=== PATIENT | female | born 1980 | race Caucasian/White ===

== ENCOUNTER → 2019-09-04 08:11 | Outpatient (CLI) | payer OTHER, MEDICAID, SELFPAY ==
--- NOTE | 2019-09-04 08:12 | DI.MRI.S_ITS ---
PROCEDURE: MR CERVICAL SPINE WO/W CON INDICATIONS: Left upper extremity pain and weakness, cervical radiculopa TECHNIQUE: Noncontrast sagittal T1 spin echo and T2 fast spin echo, sagittal STIR, sagittal PD fast spin echo, foraminal oblique sagittal T2 fast spin echo, axial gradient echo or T2 fast spin echo through the cervical spine. After the administration of contrast, sagittal and axial T1 spin echo with fat saturation through the cervical spine. COMPARISON: [facility], , MRI C-SPINE W/O CONTRAST, 12/13/2018, 8:59. FINDINGS: Image quality: Excellent. Alignment and curvature: Straightening of the normal lordotic curvature. Cervical spondylosis most pronounced at C5-C6 and C6-C7. Marrow: Marrow demonstrates normal overall signal. Spinal cord: Visualized spinal cord is normal in size, without white matter lesions. No suspicious intramedullary enhancement. No cerebellar tonsillar herniation. Paraspinous soft tissues: No paravertebral masses or suspicious enhancement. C2-C3: Normal appearance. C3-C4: Mild bilateral foraminal narrowing with slight nerve root compression, which appears minimally progressed. No canal stenosis. C4-C5: Minimal canal narrowing. Moderate bilateral foraminal stenoses with neurocompression on both sides although left slightly greater than right. No definite interval change. C5-C6: Mild canal narrowing, left-sided. This appears grossly unchanged. Moderate bilateral foraminal stenoses with slight or progression bilaterally this appears progressed on the left and grossly stable on the right. C6-C7: Mild left-sided canal narrowing, which is slightly progressed since the prior study. No right foraminal stenosis. Slight left foraminal narrowing. No interval change. C7-T1: Normal appearance. IMPRESSION: Diffuse cervical spondylosis and facet disease, with slight interval progression since 12/13/18 as detailed by spinal level above. Straightening of the normal lordotic curvature. No abnormal enhancement. Dictated by: Piyush Queen M.D. on 09/04/2019 at 10:57 Approved by: Piyush Queen M.D. on 09/04/2019 at 11:09
== END ==
PROVIDERS: PCP Nurse Practitioner Family; Referring Provider Physical Medicine & Rehabilitation; Visit Provider Physical Medicine & Rehabilitation
DX: M47.22 Other spondylosis with radiculopathy, cervical region (principal); M96.1 Postlaminectomy syndrome, not elsewhere classified; R29.898 Other symptoms and signs involving the musculoskeletal system; M79.602 Pain in left arm
CPT/HCPCS: 72156; A9579

== ENCOUNTER 2021-05-11 08:29 | Outpatient (CLI) | payer OTHER, MEDICAID, SELFPAY ==
[2021-05-11] VITALS (11 sets, daily range): BP systolic 105–135; BP diastolic 64–85; PULSE 74–81; RESP 11–75; TEMP 36.4; O2SAT 16–100
--- NOTE | 2021-05-11 08:30 | DI.RAD.S_ITS ---
PROCEDURE: PAIN C/T INTERLAMINAR INJECT INDICATIONS: SPINAL STENOSIS COMPARISON: [facility], RG, XR C-SPINE 4-6V, 04/19/2021, 17:02. FINDINGS: Fluoroscopic spot filming was performed to verify placement of a spinal needle at the C6-C7 level, as labeled on the films. Appropriate location of the needle tip was confirmed by injection of iodinated contrast. IMPRESSION: No significant intraprocedural abnormality. Dictated by: Baldo Lau M.D. on 05/11/2021 at 9:50 Approved by: Baldo Lau M.D. on 05/11/2021 at 9:50
[2021-05-11] MEDS: fentaNYL 100 MCG/2 ML INJ 50 MCG IV (10:05)
[2021-05-11] MEDS: MIDAZOLAM 5 MG/5 ML VIAL IV (10:13)
[2021-05-11] MEDS: IOPAMIDOL 15 ML VIAL 3 ML INJ (10:14)
[2021-05-11] MEDS: BUPIVACAINE 0.25% (PF) VIAL 2 ML INJ (10:14)
[2021-05-11] MEDS: DEXAMETHASONE 10 MG/ML VIAL 30 MG INJ (10:15)
--- NOTE | 2021-05-11 10:29 | P.PCN_ITS ---
Date/Time/Diagnoses Date of procedure: 05/11/21 Time of procedure: 10:29 Pre-procedure diagnosis: 1. CERVICAL STENOSIS, 2. CERVICAL HNP WITH UPPER EXTREMITY RADICULAR FEATURES Post-procedure diagnosis: same Procedure Notes Procedure: 1. FLUORSCOPICALLY GUIDED CONTRAST CONTROLLED INTERLAMINAR EPIDURAL STEROID INJECTION - C6/7 TL PRIYA Indications: Vilma is referred by PETE Pisano for treatment of Cervical HNP with Upper Extremity Paresthesias. Physician: Garrett Morgan Total Fluoroscopy time (seconds): 27 Total sedation minutes: 18 Complications: none Procedure in detail & Post-procedure care: FINDINGS Cervical Stenosis due to disc deterioration and nerve root irritation and nerve root irritation DESCRIPTION OF PROCEDURE Fluoroscopically guided, contrast-controlled C6/7 translaminar epidural steroid injection with conscious sedation. Following review of allergy and review of potential side effects and complications, including, but not necessarily limited to, infection, allergic reaction, local tissue breakdown, temporary as well as permanent nerve injury, stroke, paralysis, and possible , the patient indicated that patient understood and agreed to proceed. An informed consent document was signed by the patient, witnessed by a nurse, and placed in the patient's chart. Additionally, other treatment options including modalities, medications, and physical therapy were reviewed with the patient. After review of previous anaesthesic history and IV conscious sedation the patient was deemed safe to proceed with today?s procedure with IV conscious sedation as ASA class II designation. Safety time-out was performed to confirm patient ID, procedure to be performed and site of procedure. IV sedation was accomplished with a combination of 4mg of Versed and 50mcg of Fentanyl administered by the RN after DO order, titrated to patient comfort during the course of the procedure while the patient remained responsive to all verbal commands. In the prone position, following sterile prep and drape of the cervical region, the C6/7 translaminar space was identified fluoroscopically. The skin was anesthetized via a 25-gauge 1.5-inch needle with 1% lidocaine solution. At this point, a 25-gauge, 2.5-inch short bevel spinal needle was atraumatically introduced and advanced under fluoroscopic guidance into epidural space at the C6/7 translaminar space. Depth was confirmed on lateral view. Radiological data, including multiple fluoroscopic views of the cervical spine, reveal a spinal needle at the C6/7 translaminar space. Lateral views then show placement of the needle in the epidural space. Subsequent views show contrast material flowing superiorly and inferiorly in the epidural space. DSA fluoroscopy with live contrast injection, once again, confirmed no vascular or intrathecal uptake. At this point, using loss of resistance technique with saline and air, the epidural space was entered. Following negative aspiration, injection of ap proximately 1.5 cc of Isovue-200 with live fluoroscopy in the AP view confirmed epidural flow in the epidural space without vascular or intrathecal uptake observed. Subsequently, a test dose of 1 cc of 1% lidocaine solution was injected and patient was observed for two minutes without signs or symptoms of complications, including abdominal pain, shortness of breath, bilateral upper or lower extremity weakness, nausea and vomiting, prior to steroid injection. At this point, 3cc or 30mg of dexamethasone was then injected without incident. The patient tolerated the procedure well without signs or symptoms of complications prior to being transferred to the recovery area for further monitoring, The patient was then transferred to the recovery area where they were observed for an appropriate period of time after the injection. The patient reported a VAS score of 6 prior to the procedure and a post-procedure VAS of 0. POST OP INSTRUCTIONS The patient was provided a Pain Log to continue to record their response to the target-specific procedure prior to follow-up visit with the referring provider. Additionally, specific post-injection care instructions and a contact number to our office were provided if concerns arise regarding possible complications associated with the procedure are suspected.
== END 2021-05-11 10:45 | disposition home or self-care (01) ==
LOC: RAD 08:30
PROVIDERS: PCP Nurse Practitioner Family; Referring Provider Physical Medicine & Rehabilitation; Visit Provider Physical Medicine & Rehabilitation
DX: M48.02 Spinal stenosis, cervical region (principal); M50.123 Cervical disc disorder at C6-C7 level with radiculopathy
CPT/HCPCS: 62321; 99152; J1100; J2250; J3010

== ENCOUNTER 2021-12-21 08:50 | Emergency (ER) | payer OTHER, MEDICAID, SELFPAY ==
[2021-12-21 09:00] VITALS: BP 120/64; PULSE 77; RESP 14; TEMP 37.1; O2SAT 99; BMI 29.7
--- NOTE | 2021-12-21 09:07 | ED.ABDPAIN ---
HPI - Abdominal Pain General Chief Complaint: Abdominal Pain Stated Complaint: Abd pain, nausea Time Seen by Provider: 12/21/21 09:00 Source: patient Mode of arrival: Ambulatory History of Present Illness HPI narrative: Patient is a 41-year-old female with no past medical history presenting today with epigastric and right upper quadrant pain. She says this started last night it has progressively gotten worse. She feels nauseous she has not had any vomiting. No lower abdominal pain. She denies any radiation into her chest but sometimes actually has left shoulder discomfort. She has no shortness of breath. No fever or chills. She was checking in his to get cervical injection with Dr. Morgan of but due to her severe abdominal pain and nausea was sent to the ED for further evaluation. Related Data Home Medications Medication Instructions Recorded Confirmed ibuprofen 800 mg tablet 800 mg PO TID 08/17/19 04/24/21 propranolol 80 mg capsule,24 80 mg PO DAILY 08/17/19 04/24/21 hr,extended release albuterol sulfate 90 mcg/actuation 2 inh inhalation Q6H PRN 04/24/21 04/24/21 aerosol inhaler bupropion HCl 150 mg 24 hr tablet, 150 mg PO DAILY 04/24/21 04/24/21 extended release dextroamphetamine-amphetamine 20 20 mg PO TID 04/24/21 04/24/21 mg tablet oxycodone 5 mg tablet 5 mg PO Q6H PRN 04/24/21 04/24/21 zolpidem 10 mg tablet 10 mg PO BEDTIME PRN 04/24/21 04/24/21 bupropion HCl 300 mg 24 hr tablet, 300 mg PO DAILY 10/12/21 extended release sumatriptan succinate 50 mg tablet 50 mg PO ONCE 10/12/21 trazodone 150 mg tablet 150 mg PO BEDTIME 10/12/21 Previous Rx's Medication Instructions Recorded diazepam 10 mg tablet (Valium) 10 mg PO .COMPLEX PRN 1-2 prior to 12/18/21 MRI and for possible steroid flare #10 tabs ondansetron 4 mg disintegrating 4 mg PO Q8H PRN nausea and 12/21/21 tablet vomiting #10 tabs Allergies Allergy/AdvReac Type Severity Reaction Status Date / Time morphine Allergy Severe Anaphylaxis Verified 12/21/21 09:02 Sulfa (Sulfonamide Allergy Severe Rash Verified 12/21/21 09:02 Antibiotics) Review of Systems Review of Systems Narrative: GENERAL: Denies chills, fatigue, malaise, fever, sweats, travel HEENT: Denies sinus pain, ear pain, sore throat, difficulty swallowing, neck pain RESPIRATORY: Denies dyspnea, cough, wheezing, hemoptysis, sputum. CARDIOVASCULAR: Denies chest pain, palpitations, orthopnea, edema GASTROINTESTINAL: See HPI : Denies dysuria, frequency, incontinence, hematuria, urinary retention, flank pain. MUSCULOSKELETAL: Denies weakness, joint pain, or bony pain SKIN: No rash, no erythema, no pruritus NEUROLOGIC: Denies weakness, dizziness, headache, numbness, change in speech, confusion PSYCHIATRIC: No concerning psychosocial issues. 12 point review of systems is negative except for those stated above and HPI Patient History Medical History Cervical post-laminectomy syndrome Cervical radiculopathy at C5 Cervical radiculopathy at C7 Left arm weakness Surgical History H/O: hysterectomy History of tonsillectomy Status post cervical spinal arthrodesis Family History Unknown No pertinent family history Social History Smoking Status: Never smoker Smoking Status: Never smoker alcohol intake frequency: holidays/special occasions only Substance Use Type: does not use Exam Initial Vital Signs Initial Vital Signs: Vital Signs Temperature 98.8 F 12/21/21 09:00 Pulse Rate 77 12/21/21 09:00 Respiratory Rate 14 12/21/21 09:00 Blood Pressure 120/64 12/21/21 09:00 Pulse Oximetry 99 12/21/21 09:00 Oxygen Delivery Method 12/21/21 09:00 GENERAL: Alert 41-year-old female appears uncomfortable and in no acute distress. HEENT: Head atraumatic,EOMI, pupils reactive, face symmetric, moist mucous membranes CARDIOVASCULAR: Regular rate and rhythm without murmurs, rubs or gallops. RESPIRATORY: Breath sounds equal bilaterally, no wheezes rales or rhonchi. ABDOMEN: Soft, nontender. Normoactive bowel sounds all 4 quadrants. No guarding or rebound. EXTREMITIES: Normal range of motion, no clubbing or edema. Neurovascularly intact NEUROLOGICAL: Alert and oriented x4. SKIN: Warm, dry, no laceration, no petechiae, no rashes or lesions. Course Orders Ordered: Discontinued Medications Hydromorphone HCl (Hydromorphone 1 Mg Inj) 1 mg IV NOW ONE Stop: 12/21/21 10:02 Last Admin: 12/21/21 10:05 Dose: 1 mg Documented By: JACK Hydromorphone HCl (Hydromorphone 1 Mg Inj) 1 mg IV NOW ONE Stop: 12/21/21 11:30 Last Admin: 12/21/21 11:32 Dose: 1 mg Documented By: JACK(2) Ketorolac Tromethamine (Ketorolac 30 Mg/Ml Vial) 15 mg IV NOW ONE Stop: 12/21/21 09:21 Last Admin: 12/21/21 09:38 Dose: 15 mg Documented By: JACK(2) Ondansetron HCl (Ondansetron 4 Mg/2 Ml Inj) 4 mg IV NOW ONE Stop: 12/21/21 09:21 Last Admin: 12/21/21 09:38 Dose: 4 mg Documented By: JACK(2) Vital Signs Vital signs: Vital Signs - 8 hr 12/21/21 11:00 12/21/21 11:00 12/21/21 11:30 Pulse Rate 58 L Blood Pressure 107/59 L 102/63 Pulse Oximetry 96 12/21/21 11:30 Pulse Rate 64 Blood Pressure Pulse Oximetry 99 MDM - Abdominal Pain Lab Data Result diagrams: 12/21/21 09:15 12/21/21 09:15 Labs: Lab Results 12/21/21 12/21/21 Range/Units 09:15 09:15 WBC 5.8 (4.5-11.0) X10^3/uL RBC 4.26 (4.0-5.2) X10^6/uL Hgb 13.2 (12.0-16.0) g/dL Hct 38.0 (36-46) % MCV 89.3 (80-100) fL MCH 31.0 (26-34) PG MCHC 34.7 (30-36) % RDW 12.6 (11.6-14.8) % Plt Count 275 (150-400) X10^3/uL Neut % (Auto) 47.6 L (50-75) % Lymph % (Auto) 38.3 (25-40) % Petroleum % (Auto) 10.3 (3-14) % Eos % (Auto) 2.8 (2-4) % Baso % (Auto) 1.0 (0-2) % Neut # (Auto) 2800 (7908-4107) /uL Lymph # (Auto) 2200 (9021-7243) /uL Petroleum # (Auto) 600 (0-900) /uL Eos # (Auto) 200 (0-450) /uL Baso # (Auto) 100 (0-100) /uL Sodium 139 (137-145) mmol/L Potassium 4.2 (3.4-5.1) mmol/L Chloride 107 (98-107) mmol/L Carbon Dioxide 21 L (22-32) mmol/L BUN 12 (7-17) mg/dL Creatinine 0.75 (0.52-1.04) mg/dL Estimated GFR > 60 (>60) mL/min BUN/Creatinine Ratio 16.0 (6-22) Glucose 110 H (70-100) mg/dL Calcium 8.5 (8.4-10.2) mg/dL Total Bilirubin 0.6 (0.2-1.3) mg/dL AST 275 H (14-36) IU/L ALT 247 H (<35) IU/L Alkaline Phosphatase 71 (38-126) U/L Total Protein 7.1 (6.3-8.2) g/dL Albumin 4.2 (3.5-5.0) g/dL Globulin 2.9 (1.7-4.1) g/dL Albumin/Globulin Ratio 1.4 (1.0-2.8) Lipase 59 (23-300) U/L Point of care testing: Urine Dip Bedside Urine Glucose Negative Bedside Urine Bilirubin - Negative Bedside Urine Ketone - Negative Urine Specific [place] 1.020 Bedside Urine Occult Blood - Negative Bedside Urine pH 6.0 Bedside Urine Protein - Negative Bedside Urine Urobilinogen 0.2 Bedside Urine Nitrite - Negative Bedside Urine Leukocytes - Negative Esterase Imaging Data US - abdomen: Radiologist's Impression: YESENIA Ochoa [id number] Ultrasound Report Signed Patient: Vilma Fernandez MR#: [id number] : 1980 Acct:[id number] Age/Sex: 41 / F Date of Service: 12/21/21 Loc: ED Accession Number: [id number] ?? Procedure: US abdomen limited Ordering Provider: Sue Sinclair D.O. PROCEDURE:? US ABDOMEN LIMITED ? INDICATIONS:? pain ruq and epigastric ? TECHNIQUE:? Real-time scanning was performed of the abdominal and retroperitoneal organs, with image documentation.? ? COMPARISON:? None. ? FINDINGS:? ? Liver:? The liver demonstrates diffusely increased echotexture without focal abnormalities consistent with chronic hepatocellular disease/hepatic steatosis. ? Gallbladder:? Gallbladder is normal in sonographic appearance without gallstones, gallbladder wall thickening, pericholecystic fluid, or abnormal sonographic Peña's.? ? Biliary ducts:? Intrahepatic bile ducts are non-dilated.? Extrahepatic bile duct caliber measures 3 mm.? Normal is 6-7 mm or less in diameter, or 10 mm or less post-cholecystectomy.? ? Pancreas:? Visualized portions of the pancreas are sonographically normal.? ? Miscellaneous:? No free abdominal fluid.? ? ? IMPRESSION:? No acute sonographic abnormalities in the right upper quadrant.? No evidence for cholelithiasis or acute cholecystitis. ? The liver demonstrates diffusely increased echotexture without focal abnormalities consistent with chronic hepatocellular disease/hepatic steatosis. Consider correlation with LFTs. ? ? ? Dictated by: Kwasi Lion M.D. on 12/21/2021 at 10:37 ? ? MDM Narrative Medical decision making narrative: Patient is still in quite a bit of pain Toradol did not seem to help. She takes oxycodone at home she is given Dilaudid. Still in pain. Blood work is reassuring liver enzymes are elevated but normal bilirubin. Ultrasound shows hepatic steatosis without any cholelithiasis or acute cholecystitis. At this time no identifiable cause of pain. Abdomen is reexamined her lower abdomen remains non tender she is ammonia still operator in her epigastric and right upper quadrant area. At this time recommend pain keep management and anti nausea medication. Re-evaluation if needed. This time she does not need CT blood work is reassuring. She is really only tender in her right upper quadrant Discharge Plan Departure Patient Disposition: Home Clinical Impression: Hepatic steatosis, Elevated liver enzymes Instructions: Acute Abdominal Pain Activity Restrictions/Additional Instructions: *You have been diagnosed with abdominal pain elevated liver enzymes *What to do: Sorry we were unable to find the cause of your abdominal pain today. Please continue to take pain medications. I hope it better be sure to stay hydrated *Continue to take medications as directed Zofran 4 mg every 8 hours if needed for nausea vomiting--> sent to [facility] [address] *Follow up with your primary care provider in 2-3 days or call [phone] *Return to ER if you should have increasing pain persistent vomiting, fever or any new, worsening or concerning symptoms Prescriptions: New ondansetron 4 mg tablet,disintegrating 4 mg PO Q8H PRN (Reason: nausea and vomiting) Qty: 10 0RF No Action diazepam [Valium] 10 mg tablet 10 mg PO .COMPLEX MDD 3 tabs PRN (Reason: 1-2 prior to MRI and for possible steroid flare) Qty: 10 0RF Rx Instructions: 10 mg PO PRN; propranolol 80 mg capsule,extended release 24 hr 80 mg PO DAILY ibuprofen 800 mg tablet 800 mg PO TID Hold Instructions: Home Medication placed on hold at Doctor's office dextroamphetamine-amphetamine 20 mg tablet 20 mg PO TID oxycodone 5 mg tablet 5 mg PO Q6H PRN albuterol sulfate 90 mcg/actuation HFA aerosol inhaler 2 inh inhalation Q6H PRN bupropion HCl 150 mg tablet extended release 24 hr 150 mg PO DAILY zolpidem 10 mg tablet 10 mg PO BEDTIME PRN trazodone 150 mg tablet 150 mg PO BEDTIME sumatriptan succinate 50 mg tablet 50 mg PO ONCE Label Comments: TAKE 1 TABLET BY MOUTH AT ONSET OF MIGRAINE HEADACHE, MAY REPEAT IN 30 MIN NEEDED. MAX 4 TABS/ 24 HRS bupropion HCl 300 mg tablet extended release 24 hr 300 mg PO DAILY Label Comments: Take 1 Tablet By Oral Route 1 time per day for anxiety and depression Referrals: Cliff Henry MD [Primary Care Provider] - Visit Report Forms: Patient Portal/API
--- NOTE | 2021-12-21 09:20 | DI.US.S_ITS ---
PROCEDURE: US ABDOMEN LIMITED INDICATIONS: pain ruq and epigastric TECHNIQUE: Real-time scanning was performed of the abdominal and retroperitoneal organs, with image documentation. COMPARISON: None. FINDINGS: Liver: The liver demonstrates diffusely increased echotexture without focal abnormalities consistent with chronic hepatocellular disease/hepatic steatosis. Gallbladder: Gallbladder is normal in sonographic appearance without gallstones, gallbladder wall thickening, pericholecystic fluid, or abnormal sonographic Peña's. Biliary ducts: Intrahepatic bile ducts are non-dilated. Extrahepatic bile duct caliber measures 3 mm. Normal is 6-7 mm or less in diameter, or 10 mm or less post-cholecystectomy. Pancreas: Visualized portions of the pancreas are sonographically normal. Miscellaneous: No free abdominal fluid. IMPRESSION: No acute sonographic abnormalities in the right upper quadrant. No evidence for cholelithiasis or acute cholecystitis. The liver demonstrates diffusely increased echotexture without focal abnormalities consistent with chronic hepatocellular disease/hepatic steatosis. Consider correlation with LFTs. Dictated by: Kwasi Lion M.D. on 12/21/2021 at 10:37 Approved by: Kwasi Lion M.D. on 12/21/2021 at 10:40
[2021-12-21] MEDS: KETOROLAC 30 MG/ML VIAL 15 MG IV (09:38)
[2021-12-21] MEDS: ONDANSETRON 4 MG/2 ML INJ IV (09:38)
[2021-12-21 09:43] LABS: Add Manual Diff / Slide Review NO; Basophils Absolute Auto 100 /uL (0-100); Eosinophils Absolute Auto 200 /uL (0-450); Eosinophils Percent Auto 2.8 % (2-4); Hemoglobin 13.2 g/dL (12.0-16.0); Lymphocytes Absolute Auto 2200 /uL (1100-4500); Lymphocytes Percent Auto 38.3 % (25-40); Mean Corpuscular HGB Conc 34.7 % (30-36); Mean Corpuscular Volume 89.3 fL (80-100); Monocytes Absolute Auto 600 /uL (0-900); Monocytes Percent Auto 10.3 % (3-14); Neutrophils Absolute Auto 2800 /uL (1500-7000); Neutrophils Percent Auto 47.6 % (50-75); Platelet Count 275 X10^3/uL (150-400); Red Blood Cell Count 4.26 X10^6/uL (4.0-5.2); Red Cell Distribution Width 12.6 % (11.6-14.8); White Blood Cell Count 5.8 X10^3/uL (4.5-11.0)
[2021-12-21 09:54] LABS: Alanine Aminotransferase 247 IU/L (<35); Albumin 4.2 g/dL (3.5-5.0); Albumin Globulin Ratio 1.4 (1.0-2.8); Alkaline Phosphatase 71 U/L (38-126); Aspartate Aminotransferase 275 IU/L (14-36); Bilirubin Total 0.6 mg/dL (0.2-1.3); Blood Urea Nitrogen 12 mg/dL (7-17); Calcium 8.5 mg/dL (8.4-10.2); Carbon Dioxide 21 mmol/L (22-32); Chloride 107 mmol/L (98-107); Estimated Glomerular Filt Rate > 60 mL/min (>60); Globulin 2.9 g/dL (1.7-4.1); Glucose 110 mg/dL (70-100); Lipase 59 U/L (23-300); Potassium 4.2 mmol/L (3.4-5.1); Sodium 139 mmol/L (137-145); Total Protein 7.1 g/dL (6.3-8.2)
[2021-12-21 09:57] LABS: HEMOLYSIS 53 (0-50)
[2021-12-21] MEDS: HYDROMORPHONE 1 MG INJ IV ×2 (10:05→11:32)
[2021-12-21 10:06] VITALS: PULSE 67; RESP 18; O2SAT 98
[2021-12-21 10:07] VITALS: BP 118/78; PULSE 71; O2SAT 98
[2021-12-21 10:30] VITALS: BP 104/67; PULSE 75; O2SAT 95
[2021-12-21 11:00] VITALS: BP 107/59; PULSE 58; O2SAT 96
[2021-12-21 11:30] VITALS: BP 102/63; PULSE 64; O2SAT 99
== END 2021-12-21 11:43 | disposition home or self-care (01) ==
PROVIDERS: Emergency Provider Emergency Medicine; PCP Internal Medicine
DX: R74.8 Abnormal levels of other serum enzymes (principal); K76.0 Fatty (change of) liver, not elsewhere classified
CPT/HCPCS: 36415; 76705; 80053; 81003; 83690; 85025; 96374; 96375; 96376; 99284; J1170; J1885; J2405

== ENCOUNTER 2022-01-04 09:09 | Outpatient (CLI) | payer OTHER, MEDICAID, SELFPAY ==
[2022-01-04] VITALS (8 sets, daily range): BP systolic 117–145; BP diastolic 67–86; PULSE 75–84; RESP 10–26; TEMP 36.1; O2SAT 98–100
--- NOTE | 2022-01-04 09:11 | DI.RAD.S_ITS ---
PROCEDURE: PAIN C/T INTERLAMINAR INJECT INDICATIONS: SPINAL STENOSIS COMPARISON: [facility], , PAIN C/T INTERLAMINAR INJECT, 05/11/2021, 11:14. FINDINGS: Fluoroscopic spot filming was performed to verify placement of a spinal needle at the C6-C7 level, as labeled on the films. Appropriate location of the needle tip was confirmed by injection of iodinated contrast. IMPRESSION: No significant intraprocedural abnormality. Dictated by: Baldo Lau M.D. on 01/04/2022 at 12:09 Approved by: Baldo Lau M.D. on 01/04/2022 at 12:09
[2022-01-04] MEDS: MIDAZOLAM 2 MG/2 ML VIAL 4 MG IV (10:36)
[2022-01-04] MEDS: DEXAMETHASONE 10 MG/ML VIAL 30 MG INJ (10:38)
[2022-01-04] MEDS: BUPIVACAINE 0.25% (PF) VIAL 2 ML INJ (10:38)
[2022-01-04] MEDS: IOPAMIDOL 15 ML VIAL 3 ML INJ (10:38)
--- NOTE | 2022-01-04 10:55 | P.PCN_ITS ---
Date/Time/Diagnoses Date of procedure: 01/04/22 Time of procedure: 10:55 Pre-procedure diagnosis: 1. CERVICAL STENOSIS, 2. CERVICAL HNP WITH UPPER EXTREMITY RADICULAR FEATURES Post-procedure diagnosis: same Procedure Notes Procedure: 1. FLUORSCOPICALLY GUIDED CONTRAST CONTROLLED INTERLAMINAR EPIDURAL STEROID INJECTION - C6/7 TL PRIYA Indications: Vilma is referred by Dr. Henry for treatment of Cervical HNP with Upper Extremity Paresthesias. Physician: Garrett Morgan Total Fluoroscopy time (seconds): 27 Total sedation minutes: 14 Complications: none Procedure in detail & Post-procedure care: FINDINGS Cervical Stenosis due to disc deterioration and nerve root irritation and nerve root irritation DESCRIPTION OF PROCEDURE Fluoroscopically guided, contrast-controlled C6/7 translaminar epidural steroid injection with conscious sedation. Following review of allergy and review of potential side effects and complications, including, but not necessarily limited to, infection, allergic reaction, local tissue breakdown, temporary as well as permanent nerve injury, stroke, paralysis, and possible , the patient indicated that patient understood and agreed to proceed. An informed consent document was signed by the patient, witnessed by a nurse, and placed in the patient's chart. Additionally, other treatment options including modalities, medications, and physical therapy were reviewed with the patient. After review of previous anaesthesic history and IV conscious sedation the patient was deemed safe to proceed with today?s procedure with IV conscious sedation as ASA class II designation. Safety time-out was performed to confirm patient ID, procedure to be performed and site of procedure. IV sedation was accomplished with a combination of 4mg of Versed administered by the RN after DO order, titrated to patient comfort during the course of the procedure while the patient remained responsive to all verbal commands. In the prone position, following sterile prep and drape of the cervical region, the C6/7 translaminar space was identified fluoroscopically. The skin was anesthetized via a 25-gauge 1.5-inch needle with 1% lidocaine solution. At this point, a 25-gauge, 2.5-inch short bevel spinal needle was atraumatically introduced and advanced under fluoroscopic guidance into epidural space at the C6/7 translaminar space. Depth was confirmed on lateral view. Radiological data, including multiple fluoroscopic views of the cervical spine, reveal a spinal needle at the C6/7 translaminar space. Lateral views then show placement of the needle in the epidural space. Subsequent views show contrast material flowing superiorly and inferiorly in the epidural space. DSA fluoroscopy with live contrast injection, once again, confirmed no vascular or intrathecal uptake. At this point, using loss of resistance technique with saline and air, the epidural space was entered. Following negative aspiration, injection of approximately 1.5 cc of Isovue-200 with live fluoroscopy in the AP view confirmed epidural flow in the epidural space without vascular or intrathecal uptake observed. Subsequently, a test dose of 1cc of 1% lidocaine solution was injected and patient was observed for two minutes without signs or symptoms of complications, including abdominal pain, shortness of breath, bilateral upper or lower extremity weakness, nausea and vomiting, prior to steroid injection. At this point, 3cc or 30mg of dexamethasone was then injected without incident. The patient tolerated the procedure well without signs or symptoms of compli cations prior to being transferred to the recovery area for further monitoring, The patient was then transferred to the recovery area where they were observed for an appropriate period of time after the injection. The patient reported a VAS score of 6 prior to the procedure and a post-procedure VAS of 0. POST OP INSTRUCTIONS The patient was provided a Pain Log to continue to record their response to the target-specific procedure prior to follow-up visit with the referring provider. Additionally, specific post-injection care instructions and a contact number to our office were provided if concerns arise regarding possible complications associated with the procedure are suspected.
== END 2022-01-04 11:15 | disposition home or self-care (01) ==
LOC: RAD 09:11
PROVIDERS: PCP Internal Medicine; Referring Provider Physical Medicine & Rehabilitation; Visit Provider Physical Medicine & Rehabilitation
DX: M48.02 Spinal stenosis, cervical region (principal); M50.123 Cervical disc disorder at C6-C7 level with radiculopathy
CPT/HCPCS: 62321; 99152; J1100; J2250

== ENCOUNTER 2022-07-31 08:04 | Outpatient (CLI) | payer OTHER, MEDICAID, SELFPAY ==
[2022-07-31] VITALS (8 sets, daily range): BP systolic 146–163; BP diastolic 83–98; PULSE 88–106; RESP 12–20; TEMP 36.7; O2SAT 99–100
--- NOTE | 2022-07-31 08:05 | DI.RAD.S_ITS ---
PROCEDURE: PAIN C/T INTERLAMINAR INJECT INDICATIONS: SPINAL STENOSIS COMPARISON: [facility], , PAIN C/T INTERLAMINAR INJECT, 01/04/2022, 10:39. FINDINGS: Fluoroscopic spot filming was performed to verify placement of a spinal needle at the C6-C7 level, as labeled on the films. Appropriate location of the needle tip was confirmed by injection of iodinated contrast. IMPRESSION: No significant intraprocedural abnormality. Dictated by: Baldo Lau M.D. on 07/31/2022 at 9:34 Approved by: Baldo Lau M.D. on 07/31/2022 at 9:34
[2022-07-31] MEDS: BUPIVACAINE 0.25% (PF) VIAL 2 ML INJ (09:32)
[2022-07-31] MEDS: MIDAZOLAM 2 MG/2 ML VIAL IV (09:35)
[2022-07-31] MEDS: IOPAMIDOL 15 ML VIAL 3 ML INJ (09:41)
[2022-07-31] MEDS: DEXAMETHASONE 10 MG/ML VIAL 30 MG INJ (09:41)
--- NOTE | 2022-07-31 10:01 | P.PCN_ITS ---
Date/Time/Diagnoses Date of procedure: 07/31/22 Time of procedure: 10:02 Pre-procedure diagnosis: 1. CERVICAL STENOSIS, 2. CERVICAL HNP WITH UPPER EXTREMITY RADICULAR FEATURES Post-procedure diagnosis: same Procedure Notes Procedure: 1. FLUORSCOPICALLY GUIDED CONTRAST CONTROLLED INTERLAMINAR EPIDURAL STEROID INJECTION - C6/7 TL PRIYA Indications: Vilma is referred by Dr. Henry for treatment of Cervical HNP with Upper Extremity Paresthesias. Physician: Garrett Morgan Total Fluoroscopy time (seconds): 21 Total sedation minutes: 61 Complications: none Procedure in detail & Post-procedure care: FINDINGS Cervical Stenosis due to disc deterioration and nerve root irritation and nerve root irritation DESCRIPTION OF PROCEDURE Fluoroscopically guided, contrast-controlled C6/7 translaminar epidural steroid injection with conscious sedation. Following review of allergy and review of potential side effects and complications, including, but not necessarily limited to, infection, allergic reaction, local tissue breakdown, temporary as well as permanent nerve injury, stroke, paralysis, and possible , the patient indicated that patient understood and agreed to proceed. An informed consent document was signed by the patient, witnessed by a nurse, and placed in the patient's chart. Additionally, other treatment options including modalities, medications, and physical therapy were reviewed with the patient. After review of previous anaesthesic history and IV conscious sedation the patient was deemed safe to proceed with today?s procedure with IV conscious sedation as ASA class II designation. Safety time-out was performed to confirm patient ID, procedure to be performed and site of procedure. IV sedation was accomplished with a combination of 2mg of Versed administered by the RN after DO order, titrated to patient comfort during the course of the procedure while the patient remained responsive to all verbal commands. In the prone position, following sterile prep and drape of the cervical region, the C6/7 translaminar space was identified fluoroscopically. The skin was anesthetized via a 25-gauge 1.5-inch needle with 1% lidocaine solution. At this point, a 25-gauge, 2.5-inch short bevel spinal needle was atraumatically introduced and advanced under fluoroscopic guidance into epidural space at the C6/7 translaminar space. Depth was confirmed on lateral view. Radiological data, including multiple fluoroscopic views of the cervical spine, reveal a spinal needle at the C6/7 translaminar space. Lateral views then show placement of the needle in the epidural space. Subsequent views show contrast material flowing superiorly and inferiorly in the epidural space. DSA fluoroscopy with live contrast injection, once again, confirmed no vascular or intrathecal uptake. At this point, using loss of resistance technique with saline and air, the epidural space was entered. Following negative aspiration, injection of approximately 1.5 cc of Isovue-200 with live fluoroscopy in the AP view confirmed epidural flow in the epidural space without vascular or intrathecal uptake observed. Subsequently, a test dose of 1 cc of 1% lidocaine solution was injected and patient was observed for two minutes without signs or symptoms of complications, including abdominal pain, shortness of breath, bilateral upper or lower extremity weakness, nausea and vomiting, prior to steroid injection. At this point, 3cc or 30mg of dexamethasone was then injected without incident. The patient tolerated the procedure well without signs or symptoms of compl ications prior to being transferred to the recovery area for further monitoring, The patient was then transferred to the recovery area where they were observed for an appropriate period of time after the injection. The patient reported a VAS score of 6 prior to the procedure and a post-procedure VAS of 0. POST OP INSTRUCTIONS The patient was provided a Pain Log to continue to record their response to the target-specific procedure prior to follow-up visit with the referring provider. Additionally, specific post-injection care instructions and a contact number to our office were provided if concerns arise regarding possible complications associated with the procedure are suspected.
== END 2022-07-31 10:19 | disposition home or self-care (01) ==
PROVIDERS: PCP Internal Medicine; Referring Provider Physical Medicine & Rehabilitation; Visit Provider Physical Medicine & Rehabilitation
DX: M48.02 Spinal stenosis, cervical region (principal); M50.123 Cervical disc disorder at C6-C7 level with radiculopathy
CPT/HCPCS: 62321; 99152; 99153; J1100; J2250; J3490

== ENCOUNTER 2023-04-09 09:01 | Outpatient (CLI) | payer OTHER, MEDICAID, SELFPAY ==
[2023-04-09] VITALS (9 sets, daily range): BP systolic 128–163; BP diastolic 63–90; PULSE 71–81; RESP 9–18; O2SAT 100
--- NOTE | 2023-04-09 09:02 | DI.RAD.S_ITS ---
PROCEDURE: PAIN C/T INTERLAMINAR INJECT INDICATIONS: SPINAL STENOSIS COMPARISON: [facility], , PAIN C/T INTERLAMINAR INJECT, 07/31/2022, 10:41. FINDINGS: Fluoroscopic spot filming was performed during cervical pain injection. The needle is mostly obscured on the single frontal image cava but appears in the vicinity of C6-C7. IMPRESSION: Fluoroscopic spot imaging utilized during cervical pain injection. Dictated by: Marcus Ireland M.D. on 04/09/2023 at 12:41 Approved by: Marcus Ireland M.D. on 04/09/2023 at 12:43
[2023-04-09] MEDS: MIDAZOLAM 2 MG/2 ML VIAL IV ×2 (09:42→09:49)
[2023-04-09] MEDS: fentaNYL 100 MCG/2 ML INJ 50 MCG IV (09:42)
[2023-04-09] MEDS: BUPIVACAINE 0.25% (PF) VIAL 2 ML INJ (09:45)
[2023-04-09] MEDS: DEXAMETHASONE 10 MG/ML VIAL 20 MG INJ (09:45)
[2023-04-09] MEDS: iopamidoL 15 ML VIAL 3 ML INJ (09:46)
--- NOTE | 2023-04-09 10:04 | P.PCN_ITS ---
Date/Time/Diagnoses Date of procedure: 04/09/23 Time of procedure: 10:04 Pre-procedure diagnosis: 1. CERVICAL STENOSIS, 2. CERVICAL HNP WITH UPPER EXTREMITY RADICULAR FEATURES Post-procedure diagnosis: same Procedure Notes Procedure: 1. FLUORSCOPICALLY GUIDED CONTRAST CONTROLLED INTERLAMINAR EPIDURAL STEROID INJECTION - C6/7 TL PRIYA Indications: Vilma is referred by Dr. Henry for treatment of Cervical HNP with Upper Extremity Paresthesias. Physician: Garrett Morgan Total Fluoroscopy time (seconds): 43 Total sedation minutes: 18 Complications: none Procedure in detail & Post-procedure care: FINDINGS Cervical Stenosis due to disc deterioration and nerve root irritation and nerve root irritation DESCRIPTION OF PROCEDURE Fluoroscopically guided, contrast-controlled C6/7 translaminar epidural steroid injection with conscious sedation. Following review of allergy and review of potential side effects and complications, including, but not necessarily limited to, infection, allergic reaction, local tissue breakdown, temporary as well as permanent nerve injury, stroke, paralysis, and possible , the patient indicated that patient understood and agreed to proceed. An informed consent document was signed by the patient, witnessed by a nurse, and placed in the patient's chart. Additionally, other treatment options including modalities, medications, and physical therapy were reviewed with the patient. After review of previous anaesthesic history and IV conscious sedation the patient was deemed safe to proceed with today?s procedure with IV conscious sedation as ASA class II designation. Safety time-out was performed to confirm patient ID, procedure to be performed and site of procedure. IV sedation was accomplished with a combination of 4mg of Versed and 50mcg of Fentanyl administered by the RN after DO order, titrated to patient comfort during the course of the procedure while the patient remained responsive to all verbal commands. In the prone position, following sterile prep and drape of the cervical region, the C6/7 translaminar space was identified fluoroscopically. The skin was anesthetized via a 25-gauge 1.5-inch needle with 1% lidocaine solution. At this point, a 25-gauge, 2.5-inch short bevel spinal needle was atraumatically introduced and advanced under fluoroscopic guidance into epidural space at the C6/7 translaminar space. Depth was confirmed on lateral view. Radiological data, including multiple fluoroscopic views of the cervical spine, reveal a spinal needle at the C6/7 translaminar space. Lateral views then show placement of the needle in the epidural space. Subsequent views show contrast material flowing superiorly and inferiorly in the epidural space. DSA fluoroscopy with live contrast injection, once again, confirmed no vascular or intrathecal uptake. At this point, using loss of resistance technique with saline and air, the epidural space was entered. Following negative aspiration, injection of ap proximately 1.5 cc of Isovue-200 with live fluoroscopy in the AP view confirmed epidural flow in the epidural space without vascular or intrathecal uptake observed. Subsequently, a test dose of 1 cc of 1% lidocaine solution was injected and patient was observed for two minutes without signs or symptoms of complications, including abdominal pain, shortness of breath, bilateral upper or lower extremity weakness, nausea and vomiting, prior to steroid injection. At this point, 2cc or 20mg of dexamethasone was then injected without incident. The patient tolerated the procedure well without signs or symptoms of complications prior to being transferred to the recovery area for further monitoring, The patient was then transferred to the recovery area where they were observed for an appropriate period of time after the injection. The patient reported a VAS score of 6 prior to the procedure and a post-procedure VAS of 0. POST OP INSTRUCTIONS The patient was provided a Pain Log to continue to record their response to the target-specific procedure prior to follow-up visit with the referring provider. Additionally, specific post-injection care instructions and a contact number to our office were provided if concerns arise regarding possible complications associated with the procedure are suspected.
== END 2023-04-09 10:23 | disposition home or self-care (01) ==
PROVIDERS: PCP Internal Medicine; Referring Provider Physical Medicine & Rehabilitation; Visit Provider Physical Medicine & Rehabilitation
DX: M54.12 Radiculopathy, cervical region (principal); M96.1 Postlaminectomy syndrome, not elsewhere classified; M48.02 Spinal stenosis, cervical region
CPT/HCPCS: 62321; 99152; J1100; J2250; J3010; J3490

== ENCOUNTER 2023-09-17 08:19 | Outpatient (CLI) | payer OTHER, MEDICAID, SELFPAY ==
[2023-09-17] VITALS (11 sets, daily range): BP systolic 138–167; BP diastolic 67–92; PULSE 68–76; RESP 10–20; TEMP 36.2; O2SAT 100
--- NOTE | 2023-09-17 09:15 | DI.RAD.S_ITS ---
PROCEDURE: PAIN C/T INTERLAMINAR INJECT INDICATIONS: RADICULOPATHY COMPARISON: [facility], XA, PAIN C/T INTERLAMINAR INJECT, 04/09/2023, 9:52. FINDINGS: Fluoroscopic spot filming was performed to verify placement of spinal needles at the C6-7 level(s), as labeled on the films. Appropriate location(s) of the needle tip(s) was confirmed by injection of iodinated contrast. IMPRESSION: Fluoro guidance was provided intraoperatively for C6-7 epidural steroid injection performed by the ordering physician. Dictated by: Grady Wharton M.D. on 09/17/2023 at 15:58 Approved by: Grady Wharton M.D. on 09/17/2023 at 15:59
[2023-09-17] MEDS: fentaNYL 100 MCG/2 ML INJ 50 MCG IV ×2 (09:52→09:58)
[2023-09-17] MEDS: MIDAZOLAM 2 MG/2 ML VIAL IV (09:52)
[2023-09-17] MEDS: iopamidoL 15 ML VIAL 3 ML INJ (10:01)
[2023-09-17] MEDS: DEXAMETHASONE 10 MG/ML VIAL 20 MG INJ (10:01)
[2023-09-17] MEDS: BUPIVACAINE 0.25% (PF) VIAL 2 ML INJ (10:02)
--- NOTE | 2023-09-17 10:13 | P.PCN_ITS ---
Date/Time/Diagnoses Date of procedure: 09/17/23 Time of procedure: 10:13 Pre-procedure diagnosis: 1. CERVICAL STENOSIS, 2. CERVICAL HNP WITH UPPER EXTREMITY RADICULAR FEATURES Post-procedure diagnosis: same Procedure Notes Procedure: 1. FLUORSCOPICALLY GUIDED CONTRAST CONTROLLED INTERLAMINAR EPIDURAL STEROID INJECTION - C6/7 TL PRIYA Indications: Vilma is referred by Dr. Henry for treatment of Cervical HNP with Upper Extremity Paresthesias. Physician: Garrett Morgan Total Fluoroscopy time (seconds): 24 Total sedation minutes: 17 Complications: none Procedure in detail & Post-procedure care: FINDINGS Cervical Stenosis due to disc deterioration and nerve root irritation and nerve root irritation DESCRIPTION OF PROCEDURE Fluoroscopically guided, contrast-controlled C6/7 translaminar epidural steroid injection with conscious sedation. Following review of allergy and review of potential side effects and complications, including, but not necessarily limited to, infection, allergic reaction, local tissue breakdown, temporary as well as permanent nerve injury, stroke, paralysis, and possible , the patient indicated that patient understood and agreed to proceed. An informed consent document was signed by the patient, witnessed by a nurse, and placed in the patient's chart. Additionally, other treatment options including modalities, medications, and physical therapy were reviewed with the patient. After review of previous anaesthesic history and IV conscious sedation the patient was deemed safe to proceed with today?s procedure with IV conscious sedation as ASA class II designation. Safety time-out was performed to confirm patient ID, procedure to be performed and site of procedure. IV sedation was accomplished with a combination of 2mg of Versed and 100 Fentanyl administered by the RN after DO order, titrated to patient comfort during the course of the procedure while the patient remained responsive to all verbal commands. In the prone position, following sterile prep and drape of the cervical region, the C6/7 translaminar space was identified fluoroscopically. The skin was anesthetized via a 25-gauge 1.5-inch needle with 1% lidocaine solution. At this point, a 25-gauge, 2.5-inch short bevel spinal needle was atraumatically introduced and advanced under fluoroscopic guidance into epidural space at the C6/7 translaminar space. Depth was confirmed on lateral view. Radiological data, including multiple fluoroscopic views of the cervical spine, reveal a spinal needle at the C6/7 translaminar space. Lateral views then show placement of the needle in the epidural space. Subsequent views show contrast material flowing superiorly and inferiorly in the epidural space. DSA fluoroscopy with live contrast injection, once again, confirmed no vascular or intrathecal uptake. At this point, using loss of resistance technique with saline and air, the epidural space was entered. Following negative aspiration, injection of approxi mately 1.5 cc of Isovue-200 with live fluoroscopy in the AP view confirmed epidural flow in the epidural space without vascular or intrathecal uptake observed. Subsequently, a test dose of 1 cc of 1% lidocaine solution was injected and patient was observed for two minutes without signs or symptoms of complications, including abdominal pain, shortness of breath, bilateral upper or lower extremity weakness, nausea and vomiting, prior to steroid injection. At this point, 2cc or 20mg of dexamethasone was then injected without incident. The patient tolerated the procedure well without signs or symptoms of complications prior to being transferred to the recovery area for further monitoring, The patient was then transferred to the recovery area where they were observed for an appropriate period of time after the injection. The patient reported a VAS score of 6 prior to the procedure and a post-procedure VAS of 0. POST OP INSTRUCTIONS The patient was provided a Pain Log to continue to record their response to the target-specific procedure prior to follow-up visit with the referring provider. Additionally, specific post-injection care instructions and a contact number to our office were provided if concerns arise regarding possible complications associated with the procedure are suspected.
--- NOTE | 2023-09-17 10:44 | PM.PROC.IR.1 ---
Date/Time/Diagnoses Date of procedure: 09/17/23 Time of procedure: 10:44 Procedure Notes Total Fluoroscopy time (seconds): 22 Total sedation minutes: 17
== END 2023-09-17 10:33 | disposition home or self-care (01) ==
PROVIDERS: PCP Internal Medicine; Referring Provider Physical Medicine & Rehabilitation; Visit Provider Physical Medicine & Rehabilitation
DX: M48.02 Spinal stenosis, cervical region (principal); M50.123 Cervical disc disorder at C6-C7 level with radiculopathy
CPT/HCPCS: 62321; 99152; J1100; J2250; J3010; J3490

== ENCOUNTER 2024-02-27 08:17 | Outpatient (CLI) | payer MEDICARE, MEDICAID, SELFPAY ==
[2024-02-27] VITALS (8 sets, daily range): BP systolic 127–182; BP diastolic 76–106; PULSE 65–75; RESP 11–19; TEMP 36.3; O2SAT 96–100
--- NOTE | 2024-02-27 09:30 | DI.RAD.S_ITS ---
PROCEDURE: PAIN C/T INTERLAMINAR INJECT INDICATIONS: C6-7 translaminar PRIYA COMPARISON: [facility], , PAIN C/T INTERLAMINAR INJECT, 09/17/2023, 9:58. FINDINGS: Fluoroscopic spot filming was performed to verify placement of spinal needles at the C6-C7 level(s), as labeled on the films. Appropriate location(s) of the needle tip(s) was confirmed by injection of iodinated contrast. IMPRESSION: Intra procedural examination demonstrating appropriate positions of the needles. Dictated by: Lito Perez M.D. on 02/27/2024 at 18:43 Approved by: Lito Perez M.D. on 02/27/2024 at 18:44
[2024-02-27] MEDS: MIDAZOLAM 2 MG/2 ML VIAL IV (09:58)
[2024-02-27] MEDS: DEXAMETHASONE 10 MG/ML VIAL 20 MG INJ (10:02)
[2024-02-27] MEDS: BUPIVACAINE 0.25% (PF) VIAL 2 ML INJ (10:02)
[2024-02-27] MEDS: iopamidoL 15 ML VIAL 3 ML INJ (10:02)
--- NOTE | 2024-02-27 10:22 | P.PCN_ITS ---
Date/Time/Diagnoses Date of procedure: 02/27/24 Time of procedure: 10:22 Pre-procedure diagnosis: 1. CERVICAL STENOSIS, 2. CERVICAL HNP WITH UPPER EXTREMITY RADICULAR FEATURES Post-procedure diagnosis: same Procedure Notes Procedure: 1. FLUORSCOPICALLY GUIDED CONTRAST CONTROLLED INTERLAMINAR EPIDURAL STEROID INJECTION - C6/7 TL PRIYA Indications: Vilma is referred by Dr. Winter for treatment of Cervical HNP with Upper Extremity Paresthesias. Physician: Garrett Morgan Total Fluoroscopy time (seconds): 26 Total sedation minutes: 16 Complications: none Procedure in detail & Post-procedure care: FINDINGS Cervical Stenosis due to disc deterioration and nerve root irritation and nerve root irritation DESCRIPTION OF PROCEDURE Fluoroscopically guided, contrast-controlled C6/7 translaminar epidural steroid injection with conscious sedation. Following review of allergy and review of potential side effects and complications, including, but not necessarily limited to, infection, allergic reaction, local tissue breakdown, temporary as well as permanent nerve injury, stroke, paralysis, and possible , the patient indicated that patient understood and agreed to proceed. An informed consent document was signed by the patient, witnessed by a nurse, and placed in the patient's chart. Additionally, other treatment options including modalities, medications, and physical therapy were reviewed with the patient. After review of previous anaesthesic history and IV conscious sedation the patient was deemed safe to proceed with today?s procedure with IV conscious guadalupe tion as ASA class II designation. Safety time-out was performed to confirm patient ID, procedure to be performed and site of procedure. IV sedation was accomplished with a combination of 2mg of Versed administered by the RN after DO order, titrated to patient comfort during the course of the procedure while the patient remained responsive to all verbal commands. In the prone position, following sterile prep and drape of the cervical region, the C6/7 translaminar space was identified fluoroscopically. The skin was anesthetized via a 25-gauge 1.5-inch needle with 1% lidocaine solution. At this point, a 25-gauge, 2.5-inch short bevel spinal needle was atraumatically introduced and advanced under fluoroscopic guidance into epidural space at the C6/7 translaminar space. Depth was confirmed on lateral view. Radiological data, including multiple fluoroscopic views of the cervical spine, reveal a spinal needle at the C6/7 translaminar space. Lateral views then show placement of the needle in the epidural space. Subsequent views show contrast material flowing superiorly and inferiorly in the epidural space. DSA fluoroscopy with live contrast injection, once again, confirmed no vascular or intrathecal uptake. At this point, using loss of resistance technique with saline and air, the epidural space was entered. Following negative aspiration, injection of approximately 1.5 cc of Isovue-200 with live fluoroscopy in the AP view confirmed epidural flow in the epidural space without vascular or intrathecal uptake observed. Subsequently, a test dose of 1 cc of 1% lidocaine solution was injected and patient was observed for two minutes without signs or symptoms of complications, including abdominal pain, shortness of breath, bilateral upper or lower extremity weakness, nausea and vomiting, prior to steroid injection. At this point, 2cc or 20mg of dexamethasone was then injected without incident. The patient tolerated the procedure well without signs or symptoms of com plications prior to being transferred to the recovery area for further monitoring, The patient was then transferred to the recovery area where they were observed for an appropriate period of time after the injection. The patient reported a VAS score of 8 prior to the procedure and a post-procedure VAS of 2. POST OP INSTRUCTIONS The patient was provided a Pain Log to continue to record their response to the target-specific procedure prior to follow-up visit with the referring provider. Additionally, specific post-injection care instructions and a contact number to our office were provided if concerns arise regarding possible complications associated with the procedure are suspected.
== END 2024-02-27 10:32 | disposition home or self-care (01) ==
LOC: RAD 08:17
PROVIDERS: PCP Nurse Practitioner Primary Care; Referring Provider Physical Medicine & Rehabilitation; Visit Provider Physical Medicine & Rehabilitation
DX: M48.02 Spinal stenosis, cervical region (principal); M50.123 Cervical disc disorder at C6-C7 level with radiculopathy
CPT/HCPCS: 62321; 99152; J1100; J2250; J3490